=== PATIENT | female | born 1980 | race Hispanic/Latino ===

== ENCOUNTER 2017-09-16 11:15 | Emergency (ER) | payer OTHER ==
[2017-09-16] MEDS ORDERED: Famotidine 20 MG TAB ONE (11:54)
[2017-09-16] MEDS ORDERED: Mag-Al 1200 mg/1200 mg/30 ML UDCUP ONE (11:54)
[2017-09-16] MEDS ORDERED: Lidocaine Viscous Sol 2% 15 ml UD Cup ONE (11:54)
--- NOTE | 2017-09-16 12:11 | RAD ---
TWO VIEWS CHEST: Comparison: 10-22-05 History: Chest pain. FINDINGS: Two views of the chest show normal sized cardiomediastinal silhouette. There is no evidence of consol idation, mass, or pleural effusion. The bones are unremarkable. IMPRESSION: No evidence of acute cardiopulmonary disease. POS: [facility]
== END 2017-09-16 12:01 | disposition home or self-care (01) ==
LOC: ERS 11:15
DX: K21.0 Gastro-esophageal reflux disease with esophagitis (principal); F32.9 Major depressive disorder, single episode, unspecified
CPT/HCPCS: 71046; 93005

== ENCOUNTER 2018-01-06 20:35 | Emergency (ER) | payer OTHER, SELFPAY ==
[2018-01-06] MEDS ORDERED: Acetaminophen 500 MG TAB ONE (21:43)
[2018-01-06] MEDS ORDERED: Dexamethasone 4 mg/ml Vial ONE (21:43)
[2018-01-06] MEDS ORDERED: Bicillin LA 1.2 MILLION UNITS/2 ML SYRINGE ONE (22:00)
== END 2018-01-06 22:45 | disposition home or self-care (01) ==
LOC: ERS 20:35
DX: J02.0 Streptococcal pharyngitis (principal); F32.9 Major depressive disorder, single episode, unspecified
CPT/HCPCS: 87430; 96372; J0561; J1100

== ENCOUNTER 2018-02-08 09:57 | Outpatient (CLI) | payer MEDICAID | END 2018-02-08 09:58 | disposition home or self-care (01) | LOC: BICMAMMO 09:57 | PROVIDERS: ATTEND Nurse Practitioner Women's Health | DX: N64.4 Mastodynia (principal); N64.89 Other specified disorders of breast | CPT/HCPCS: 77066; G0279 ==

== ENCOUNTER 2018-08-12 13:49 | Outpatient (CLI) | payer MEDICAID ==
--- NOTE | 2018-08-12 14:42 | ULT ---
PELVIC SONOGRAM TRANSABDOMINAL AND TRANSVAGINAL IMAGING WITH DUPLEX EVALUATION: HISTORY: Irregular menses. FINDINGS: Urinary bladder is incompletely distended. Uterus has a heterogeneous echotexture and is 9.3 cm. En dometrium is 0.8 cm. No free fluid. The right ovary is 3.5 cm with a normal appearance and good color and spectral Doppler flow. The lef t ovary is 2.8 cm without focal abnormality. Doppler flow was unable to be documented. IMPRESSION: Normal endometrium. No significant abnormalities demonstrated. POS: [facility]
== END 2018-08-12 13:50 | disposition home or self-care (01) ==
LOC: BICULT 13:49
PROVIDERS: ATTEND Nurse Practitioner Women's Health
DX: N92.6 Irregular menstruation, unspecified (principal)
CPT/HCPCS: 76856

== ENCOUNTER 2022-12-22 00:04 | Emergency (ER) | payer MEDICAID, SELFPAY ==
[2022-12-22] MEDS ORDERED: hydrALAZINE 20 MG/ML VIAL ONE (01:40)
[2022-12-22 01:42] LABS: #Basophils 0.1 thou/uL (0.0-0.2); #Eosinphils 0.2 thou/uL (0.0-0.7); #Lymphocytes 4.7 thou/uL (1.20-3.40); #Monocytes 0.6 thou/uL (0.11-0.59); #Neutrophils 4.6 thou/uL (1.40-6.50); %Basophils 0.6 % (0.0-1.0); %Eosinophils 2.2 % (0.0-10.0); %Lymphocytes 45.8 % (21.0-51.0); %Monocytes 6.2 % (0.0-10.0); %Neutrophils 45.1 % (42.0-75.0); Hemoglobin 15.1 g/dL (12.0-16.0); Mean Corpuscular Volume 85.7 fl (78.0-98.0); Mean Platelet Volume 7.9 fL (7.4-10.4); Platelet Count 296 10x3/uL (130-400); RBC Distribution Width 12.4 % (11.5-14.5); Red Blood Cell (RBC) Count 5.05 mill/uL (4.20-5.40); White Blood Cell (WBC) Count 10.3 10x3/uL (4.8-10.8)
[2022-12-22 02:06] LABS: ALT (SGPT) 17 U/L (8-55); AST (SGOT) 18 U/L (5-34); Albumin 4.2 g/dL (3.5-5.0); Alkaline Phosphatase 106 U/L (40-110); Anion Gap 17 mmol/L (10-20); BUN (Urea Nitrogen) 11 mg/dL (7.0-18.7); Bilirubin, Total 0.4 mg/dL (0.2-1.2); Calc. Creatinine Clearance 0 mL/min (70-130); Calcium 9.5 mg/dL (7.8-10.44); Carbon Dioxide 23 mmol/L (22-29); Chloride 103 mmol/L (98-107); Estimated GFR 103; Globulin 3.6 g/dL (2.4-3.5); Glucose 86 mg/dL (70-105); Potassium 3.6 mmol/L (3.5-5.1); Protein, Total 7.8 g/dL (6.0-8.3); Sodium 139 mmol/L (136-145)
== END 2022-12-22 02:49 | disposition home or self-care (01) ==
LOC: ERS 00:04
DX: I10 Essential (primary) hypertension (principal)
CPT/HCPCS: 71045; 80053; 84484; 85025; 93005; J0360

== ENCOUNTER 2022-12-29 09:27 | Outpatient (CLI) | payer MEDICAID | END 2022-12-29 09:28 | disposition home or self-care (01) | LOC: ULT 09:27 | PROVIDERS: ATTEND Nurse Practitioner Women's Health | DX: R10.2 Pelvic and perineal pain (principal) | CPT/HCPCS: 76856; 93976 ==

== ENCOUNTER 2023-05-12 14:33 | Outpatient (CLI) | payer MEDICAID | END 2023-05-12 14:34 | disposition home or self-care (01) | LOC: BICMAMMO 14:33 | PROVIDERS: ATTEND Nurse Practitioner Women's Health | DX: Z12.31 Encounter for screening mammogram for malignant neoplasm of breast (principal); N64.89 Other specified disorders of breast | CPT/HCPCS: 77067 ==

== ENCOUNTER 2023-05-19 14:25 | Outpatient (CLI) | payer MEDICAID | END 2023-05-19 14:26 | disposition home or self-care (01) | LOC: BICMAMMO 14:25 | PROVIDERS: ATTEND Nurse Practitioner Women's Health | DX: N64.89 Other specified disorders of breast (principal) | CPT/HCPCS: G0279 ==